=== PATIENT | female | born 1990 | race Caucasian/White ===

== ENCOUNTER 2020-09-18 16:22 | Emergency (ER) | payer BC, OTHER, SELFPAY ==
--- NOTE | ~2020-09-18 | CT_ITS ---
EXAMINATION: CT brain wo con INDICATION: Headache COMPARISON: None TECHNIQUE: Standard unenhanced head CT. The dose-length product (DLP) was 605.33 mGy-cm. The mA was a djusted according to patient size. Iterative reconstruction technique was employed. FINDINGS: There is no intracranial hemorrhage, acute infarction, or abnormal mass lesion. The ventric les are normal. There is no abnormal mass effect or midline shift. The maher-white matter differentiat ion is normal. The basal cisterns are patent. The orbits are normal. The paranasal sinuses, mastoids and calvarium are normal. IMPRESSION: 1. No acute intracranial abnormality. Reviewed, dictated and finalized at location A. ECT SCHEDULER
--- NOTE | ~2020-09-18 | XR_ITS ---
EXAMINATION: XR chest 2V DATE: 09/18/2020 17:06 INDICATION: Transient alteration of awareness TECHNIQUE: AP and lateral views of the chest are obtained. COMPARISON: None available FINDINGS: The lungs are free of acute opacities. There is no pleural effusion or pneumothorax. The ca rdiomediastinal silhouette is normal. The visualized bones and soft tissues are unremarkable. IMPRESSION: 1. No acute cardiopulmonary abnormality. Reviewed, dictated and finalized at location A. [employer]
[2020-09-18 16:20] VITALS: BP 137/91; PULSE 93; RESP 18; TEMP 36.8; O2SAT 99
[2020-09-18 16:28] VITALS: PULSE 93; O2SAT 98
--- NOTE | 2020-09-18 16:34 | PC.NURSE ---
EKG done and shown to SOLOMON Ceron
--- NOTE | 2020-09-18 16:38 | ECG_ITS ---
Measurements Intervals [place] Rate: 85 P: 34 ID: 112 QRS: 81 QRSD: 97 T: 23 QT: 381 QTc: 454 Interpretive Statements SINUS RHYTHM WITH SHORT ID INTERVAL BORDERLINE ST-T WAVE ABNORMALITY- ANT/INF LEADS BASELINE ARTIFACT- III, V3-V6 BORDERLINE ECG Electronically Signed On 09-18-2020 18:04:42 [employer] by Manuel Maldonado D.O.
[2020-09-18 16:41] VITALS: BP 121/81; PULSE 93; RESP 17; O2SAT 98
[2020-09-18 17:03] LABS: Add Urine Microscopic? YES; Appearance Urine Clear (Clear); Bilirubin Urine Negative (Negative); Blood Urine Negative (Negative); Color Urine Straw (Yellow); Glucose Urine UA Negative (Negative); Ketones Urine Negative (Negative); Leukocyte Esterase Ur 2+ LEU/UL (Negative); Mucus Urine Rare /lpf; Nitrate Urine Negative (Negative); Protein Urine Negative (Negative); RBC Urine 0-2 /hpf (0-2); Squamous Epithelial Cell Urine Rare /hpf (Few); Urobilinogen Urine Negative mg/dL (<2.0); WBC Urine 21-30 /hpf
[2020-09-18 17:07] VITALS: BP 124/88; PULSE 88; RESP 16; O2SAT 99
[2020-09-18 17:15] LABS: Amphetamine Screen Urine Negative (Negative); Barbiturate Screen Urine Negative (Negative); Benzodiazepines Screen Urine Negative (Negative); Cannabinoid Screen Urine Negative (Negative); Cocaine Screen Urine Negative (Negative); Methadone Screen Urine Negative (Negative); Opiate Screen Urine Negative (Negative); Phencyclidine Screen Urine Negative (Negative)
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
[2020-09-18 17:25] LABS: Basophils Percent Auto 0.4 % (0.2-1.2); Eosinophils Absolute Auto 0.1 K/mm3 (0-0.3); Eosinophils Percent Auto 1.4 % (0-4.4); Hematocrit 38.2 % (37.0-47.0); Hemoglobin 12.9 g/dL (12.0-15.0); Immature Granulocyte Absolute 0.02 K/mm3 (0.00-0.031); Immature Granulocyte Percent A 0.2 % (0-0.5); Lymphocytes Percent Auto 21.4 % (18.3-44.2); Mean Corpuscular HGB Conc 33.8 g/dl (32-36); Mean Corpuscular Hemoglobin 29.3 pg (26-34); Mean Corpuscular Volume 86.8 fl (80-100); Mean Platelet Volume 9.5 fl (7.4-10.4); Monocytes Absolute Auto 0.8 K/mm3 (0.1-0.6); Monocytes Percent Auto 9.3 % (2.6-8.5); Neutrophils Absolute Auto 5.7 K/mm3 (1.3-6.7); Neutrophils Percent Auto 67.3 % (45.5-73.1); Platelet Count Result 286 k/mm3 (150-375); White Blood Count 8.4 K/mm3 (4.5-10.0)
[2020-09-18 17:35] LABS: Ethanol < 10 mg/dL (<10)
[2020-09-18 17:37] LABS: Alanine Aminotransferase 28 U/L (4-35); Alkaline Phosphatase 101 U/L (38-126); Anion Gap 13 mmol/L (8-16); Aspartate Amino Transferase 37 U/L (14-36); Bilirubin,Total 0.3 mg/dL (0.2-1.3); Blood Urea Nitrogen 11 mg/dL (7-17); Calcium 9.4 mg/dL (8.4-10.2); Carbon Dioxide 23 mmol/L (22-30); Chloride 101 mmol/L (98-107); Estimated CRCL calculation 79 ml/min; Estimated Glomerular Filt Rate > 60; Glucose 107 mg/dL (65-105); Potassium 4.1 mmol/L (3.4-5.0); Sodium 137 mmol/L (137-145)
[2020-09-18 18:08] VITALS: BP 124/76; PULSE 80; RESP 16; O2SAT 98
[2020-09-18] MEDS: CARBAMAZEPINE XR 100 MG TAB.SR.12H PO (19:10)
[2020-09-18] MEDS: ACETAMINOPHEN 325 MG TABLET 650 MG PO (19:15)
[2020-09-18 19:20] VITALS: BP 118/88; PULSE 78; RESP 16; O2SAT 98
== END 2020-09-18 19:25 | disposition home or self-care (01) ==
PROVIDERS: Emergency Provider Emergency Medicine
DX: R56.9 Unspecified convulsions (principal); R94.31 Abnormal electrocardiogram [ECG] [EKG]
CPT/HCPCS: 36415; 70450; 71046; 80053; 80307; 81001; 81025; 85025; 87086; 87088; 93005; 99284; A9270

== ENCOUNTER 2023-02-04 12:30 | Outpatient (RCR) | payer OTHER, SELFPAY ==
--- NOTE | 2022-12-24 13:23 | PTOPEVAL1 ---
Assessment and note entered by Angella Jackson DPT Evaluation Information Assessment Status Evaluation Subjective Information Pt is almost 30 weeks . Reports stress incontinence since the onset of her . Previous pelvic floor PT after her first child which was helpful, in 2019. Pt has been 2 times. Currently incontinence occurs with coughing, sneezing, after standing up from using the toilet, throwing up. Denies pain with urination. Urinates 6-8 times a day and 1 time at night. BM usually 1 time a day, takes fiber supplements. Denies pain. Previous pelvic pain after her first delivery which was relieved with therapy. Incontinence multiple times a day, at times has had to change clothes and wears liners. Reported Pain Level Pain Score 0: Self Report Assessment PT Clinical Summary The patient is presenting to skilled physical therapy with stress incontinence at almost 30 weeks . She presents with decreased core strength and likely pelvic floor weakness which are contributing to her daily incontinence. She will benefit from therapy to address these impairments and safely reduce incontinence as her progresses. Plan of Care Interventions Manual Therapy,Neuro Re-education,Patient/ Caregiver Education,Therapeutic Activities, Therapeutic Exercise,Self-Care/Home Management PT Services Indicated Yes Treatment Frequency and 1 time a week for 6 weeks Duration These treatments will address the objective and functional deficits as defined above. The patient will be advanced safely and appropriately in order for the patient to progress towards his/her prior level of function. Additional exercises will be introduced and as well as a comprehensive home exercise program upon discharge, if needed, ?to ensure carryover of functional gains achieved in the clinic. This treatment plan has been reviewed and agreement upon by the patient.
--- NOTE | 2023-02-04 12:49 | PTOPDC ---
Assessment and note entered by Angella Jackson DPT Evaluation Information Assessment Status Discharge Subjective Information Pt reports feeling much better since starting therapy. No incontinence in the last week. Is only noticing issues if she sneezes multiple times in a row. Pt is 35 weeks . Reported Pain Level Pain Score 0: Self Report Assessment PT Clinical Summary The patient has made excellent progress in therapy . She demonstrates improved strength and reports no incontinence in the last week. Due to her progress and being near the end of her , plan for discharge at this time. She has been educated to continue HEP and to follow up with MD and/or PT as needed. Plan of Care Interventions PT Services Indicated No Treatment Frequency and - Duration
== END 2023-02-05 09:59 | disposition home or self-care (01) ==
LOC: ANHGOSHPT 12:30
DX: O99.891 Other specified diseases and conditions complicating pregnancy (principal); N39.3 Stress incontinence (female) (male); Z3A.29 29 weeks gestation of pregnancy; Z3A.35 35 weeks gestation of pregnancy
CPT/HCPCS: 97110; 97112; 97161